=== PATIENT | female | born 1990 | race Two or more races ===

== ENCOUNTER 2024-09-13 11:55 | Emergency (ER) | payer MEDICAID, SELFPAY ==
[2024-09-13 11:56] VITALS: BP 173/103; PULSE 74; RESP 18; TEMP 38.3; O2SAT 99; BMI 61.9
--- NOTE | 2024-09-13 12:10 | PD.EDBACK ---
ED Back Injury Pain RME/HPI General Chief Complaint: Back Pain/Injury Stated Complaint: BACK PAIN AFTER SNEEZING A COUPLE WEEKS AGO Time Seen by Provider: 09/13/24 12:00 Arrival date/time: 09/13/24 11:55 Limitations: no limitations RME / HPI RME / HPI Narrative: 33-year-old female with no past medical history is here today with mild left-sided mid back pain. She states that started after she sneezed 2 weeks ago. She denies any distal paresthesias or weakness. Has no changes in bowel movements or urination. Has no nausea or vomiting. Has no urinary complaints. She is febrile here with a temp of 101 Fahrenheit, she has no tachycardia. Vital signs are otherwise stable. She denies any cough or congestion. No rashes. No skin changes. She has no other acute complaints. Related Data Previous Rx's ?Medication ?Instructions ?Recorded diphenhydramine HCl 50 mg capsule 50 mg PO Q6H PRN allergic reaction 08/19/20 #20 caps epinephrine 0.3 mg/0.3 mL 0.3 ml subcut .one time dose #1 ea 08/19/20 injection, auto-injector famotidine 20 mg tablet 20 mg PO BID #14 tabs 08/19/20 methylprednisolone 4 mg tablets in 4 mg PO .as directed #21 tabs 08/22/20 a dose pack (Medrol (Harshad)) etodolac 400 mg tablet 400 mg PO BID PRN pain #30 tabs 09/10/21 methocarbamol 750 mg tablet 750 mg PO TID PRN pain #30 tabs 09/10/21 methocarbamol 750 mg tablet 750 mg PO TID #20 tabs 09/13/24 Allergies Allergy/AdvReac Type Severity Reaction Status Date / Time No Known Allergies Allergy Verified 09/13/24 11:58 Review of Systems Review of Systems Systems Reviewed: All systems reviewed, normal except as documented ED Exam General Limitations: Present no limitations General appearance: Present alert and in no apparent distress Head Head exam: Present atraumatic Eye Eye exam: Present normal appearance, PERRL and EOMI ENT ENT exam: Present normal exam, normal oropharynx and mucous membranes moist Neck Neck exam: Present normal inspection, full ROM and trachea midline Expanded Neck Exam Neck exam focused ED: Present other (No midline tenderness or vertebral step-off) Chest Chest inspection: Present normal inspection and symmetric chest wall rise Respiratory Respiratory exam: Present normal lung sounds bilaterally Cardiovascular Cardiovascular exam: Present regular rate, normal rhythm and normal heart sounds Abdominal Exam Abdominal exam: Present soft and normal bowel sounds Extremities Exam Extremities exam: Present normal inspection, full ROM and other (Strength is intact in all extremities) Back Exam Back exam: Present normal inspection and full ROM Neurological Exam Neurological exam: Present alert, oriented X3 and CN II-XII intact Psychiatric Psychiatric exam: Present normal affect and normal mood Skin Skin exam: Present warm, dry, intact and normal color Course Quality Measures none Orders Category Date Time Status Bedside COVID-19 Antigen Test NOW Care 09/13/24 12:10 Completed FLU A&B [Influenza A & B Rapid Panel] Stat Lab 09/13/24 13:07 Ordered Acetaminophen Tab [Tylenol ES Tab] Med 09/13/24 12:11 Discontinued 1,000 mg PO X1 ONE Vital Signs Vital signs: Vital Signs Temperature 101.0 F H 09/13/24 11:56 Pulse Rate 74 09/13/24 11:56 Respiratory Rate 18 09/13/24 11:56 Blood Pressure 173/103 H 09/13/24 11:56 Pulse Oximetry (%) 99 09/13/24 11:56 Oxygen Delivery Method Room Air 09/13/24 11:56 Back Pain / Injury Patient data External records reviewed:: None Clinical information provided by:: patient Social determinants that could affect healthcare access:: none Patient has the following chronic illnesses:: n/a How is presenting disease/condition affected by chronic disease/condition?: no chronic disease Evaluation data The following diagnostics were reviewed and interpreted by me:: lab results Lab and/or radiology exams considered but not ordered:: n/a Interpretation Summary: n/a Medications / Prescriptions Medications or Prescriptions considered but not ordered:: n/a Medication administrations:: Medication Administration History Discontinued Medications Acetaminophen (Acetaminophen 500 Mg Tablet) 1,000 mg PO X1 ONE Stop: 09/13/24 12:12 Last Admin: 09/13/24 12:27 Dose: 1,000 mg Documented By: NARA See above Consultations Consultation(s) initiated? (list below): No Diagnosis Most likely diagnosis given after review of the tests above:: Viral syndrome Admission Indicated Admission indicated?: not indicated Admission Request Was there a request for admission?: No Disposition Plan Disposition Plan: Discharge Discharge Attestation Discharge Attestation: The patient and all family members were given an opportunity to ask questions and understood the discharge instructions. Discharge instructions specifically effects, indications for sooner follow up or return to the emergency department, and the expected course of current diagnosis. Patient condition: Stable Discharge Plan Plan Patient Disposition: HOME (Self Care) Patient condition on transfer: Stable Prescriptions/Referrals Prescriptions/Med Rec: New methocarbamol 750 mg tablet 750 mg PO TID Qty: 20 0RF No Action methylprednisolone [Medrol (Harshad)] 4 mg tablets,dose pack 4 mg PO .as directed Qty: 21 0RF diphenhydramine HCl 50 mg capsule 50 mg PO Q6H PRN (Reason: allergic reaction) Qty: 20 0RF famotidine 20 mg tablet 20 mg PO BID Qty: 14 0RF epinephrine 0.3 mg/0.3 mL auto-injector 0.3 ml subcut .one time dose Qty: 1 0RF Rx Instructions: give one dose in the muscle in anterolateral aspect of thigh methocarbamol 750 mg tablet 750 mg PO TID PRN (Reason: pain) Qty: 30 0RF etodolac 400 mg tablet 400 mg PO BID PRN (Reason: pain) Qty: 30 0RF Referrals: Virginia Gupta FNP [Primary Care Provider] - In 1 week Problem List Clinical Impression: Acute viral syndrome Patient/Caregiver Discharge Instructions Education Materials: ED Viral Syndrome (Adult) Additional Instructions: Maintain your hydration. Use Tylenol and ibuprofen as needed. Follow-up with your primary clinic as needed. Return here for any worsening or emergent changes. Print Language: [place] Stand Alone Forms: [facility] Info., Patient Portal Info Letter
[2024-09-13 12:27] VITALS: TEMP 38.3
[2024-09-13] MEDS: ACETAMINOPHEN 500 MG TABLET 1000 MG PO (12:27)
[2024-09-13 13:40] VITALS: BP 138/68; PULSE 78; RESP 18; TEMP 37.1; O2SAT 99
== END 2024-09-13 13:40 | disposition home or self-care (01) ==
PROVIDERS: Emergency Provider Family Medicine; PCP Nurse Practitioner Family
DX: B34.9 Viral infection, unspecified (principal)
CPT/HCPCS: 87502; 87811; 99283; A9270

== ENCOUNTER 2025-01-11 18:01 | Emergency (ER) | payer MEDICAID, SELFPAY ==
[2025-01-11 18:02] VITALS: BMI 61.9
[2025-01-11 18:36] VITALS: BP 170/95; BP 173/114; PULSE 107; RESP 18; TEMP 36.9; O2SAT 98
--- NOTE | 2025-01-11 18:44 | XR_ITS ---
Examination: Transvaginal ultrasound of the pelvis, complete Technique: Transvaginal sonographic images pelvis performed using mendez scale imaging Exam date and time: January 11, 2025, 9 1920 hours INDICATIONS: Vaginal bleeding beginning 6 weeks ago. FINDINGS: Uterus 11.2 cm endometrial stripe 2.1 cm No uterine mass Right ovary 8.5 cm arterial flow, right ovarian cyst 7.5 x 6.6 x 5.2 cm Left ovary 3.5 cm arterial flow IMPRESSION: No uterine mass or intrauterine gestation Large right ovarian simple cyst 7.5 cm.
[2025-01-11 19:05] LABS: Collection Type, Urine Voided
[2025-01-11 19:14] LABS: Bilirubin,Urine Negative (Negative); Blood,Urine 3+ (Negative); Clarity,Urine Turbid (Clear/Hazy); Color,Urine Brown (Lt Yel-Yel); Glucose, Urine Trace (Negative); Ketones,Urine Negative (Negative); Leukocyte Esterase,Urine Positive (Negative); Nitrite,Urine Negative (Negative); PH,Urine 6.5 (5.0-7.0); Protein,Urine 1+ (Neg - Trace); RBC,Urine 1669 /hpf (0-3); Specific Gravity,Urine 1.010 (1.001-1.035); Squamous Epithelial Cell,Urine 2 /hpf (0-5); Urobilinogen,Urine Negative mg/dL (0.0-1.0); WBC,Urine 9 /hpf (0-5)
[2025-01-11 20:00] LABS: Basophils # (Auto) 0.1 Thou/mm3 (0.0-0.2); Basophils % (Auto) 1 % (0-2.5); Eosinophils # (Auto) 0.2 Thou/mm3 (0.0-0.5); Eosinophils % (Auto) 2 % (0-10); Hematocrit 28.7 % (36.0-46.0); Hemoglobin 9.7 g/dL (12.0-16.0); Immature Granulocytes Auto 0.36 Thou/mm3 (0.00-0.00); Lymphocytes # (Auto) 3.3 Thou/mm3 (1.0-4.8); Lymphocytes % (Auto) 28 % (10-50); Mean Corpuscular HGB Conc 33.8 g/dl (31.0-37.0); Mean Corpuscular Hemoglobin 28.5 pg (25.0-35.0); Mean Corpuscular Volume 84 fL (80-100); Monocytes # (Auto) 0.6 Thou/mm3 (0.0-0.8); Monocytes % (Auto) 5 % (0-12); Neutrophils # (Auto) 7.5 Thou/mm3 (1.8-7.7); Neutrophils % (Auto) 62 % (37-80); Nucleated Red Blood Cell # 0.12 Thou/mm3 (0.00-0.00); Nucleated Red Blood Cell % 1 /100 WBC (0); Platelet Count 266 Thou/mm3 (140-440); RDW Standard Deviation 42.1 fL (36.4-46.3); Red Blood Count 3.40 Miln/mm3 (4.00-5.20); White Blood Count 12.2 Thou/mm3 (3.6-11.0)
[2025-01-11 20:20] LABS: Alanine Aminotransferase 47 U/L (10-49); Albumin, Serum 4.4 gm/dL (3.5-5.0); Albumin/Globulin Ratio 1.8 (1.2-2.2); Alkaline Phosphatase 80 U/L (46-116); Anion Gap 11 (7-16); Aspartate Amino Transferase 33 U/L (0-34); BUN/Creatinine Ratio 8 Ratio (12-20); Beta HCG,Quantitative < 1 mIU/mL (<5.0); Bilirubin,Total 0.4 mg/dL (0.3-1.2); Blood Urea Nitrogen 6 mg/dL (9-23); Calcium 9.0 mg/dL (8.3-10.6); Calcium (Corrected) 9.0 mg/dL (8.5-10.1); Carbon Dioxide 22.7 mMol/L (20.0-31.0); Chloride 102 mMol/L (98-107); Creatinine (Component) 0.8 mg/dL (0.6-1.3); Estimated Creatinine Clearance 148.5 mL/min (>60); Globulin 2.5 gm/dL (2.3-3.5); Glucose 190 mg/dL (74-106); Osmolality,Calculated 274 (275-295); Potassium 3.5 mMol/L (3.4-5.1); Sodium 136 mMol/L (136-145); Total Protein 6.9 gm/dL (5.7-8.2); eGFR > 60 See Note
[2025-01-11 21:11] VITALS: BP 172/103; BP 181/75; PULSE 98; RESP 18; TEMP 36.8; O2SAT 99
[2025-01-11 21:36] VITALS: BP 172/103; PULSE 98
--- NOTE | 2025-01-11 22:19 | PD.EDFMALE ---
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 where she was treated with tranexamic acid patient was fine until yesterday patient started to have a prolonged heavy menstrual period with blood clots and pelvic cramping OB history patient has no history of patient menarche at 10 years old patient stated that since she started to have menstrual period she is irregular patient states that before the symptoms started she do not have any menstrual period for 1 year until 6 weeks patient started to have menstrual period which become heavy and prolonged worsening of the symptoms thus patient decided to sought consult here in the emergency room Limitations: no limitations Related Data Previous Rx's ?Medication ?Instructions ?Recorded diphenhydramine HCl 50 mg capsule 50 mg PO Q6H PRN allergic reaction 08/19/20 #20 caps epinephrine 0.3 mg/0.3 mL 0.3 ml subcut .one time dose #1 ea 08/19/20 injection, auto-injector famotidine 20 mg tablet 20 mg PO BID #14 tabs 08/19/20 methylprednisolone 4 mg tablets in 4 mg PO .as directed #21 tabs 08/22/20 a dose pack (Medrol (Harshad)) etodolac 400 mg tablet 400 mg PO BID PRN pain #30 tabs 09/10/21 methocarbamol 750 mg tablet 750 mg PO TID PRN pain #30 tabs 09/10/21 methocarbamol 750 mg tablet 750 mg PO TID #20 tabs 09/13/24 ferrous sulfate 325 mg (65 mg 325 mg PO TID 10 days #30 tabs 01/11/25 iron) tablet lisinopril 10 mg tablet 10 mg PO QDAY 30 days #30 tabs 01/11/25 medroxyprogesterone 10 mg tablet 10 mg PO TID 10 days #30 tabs 01/11/25 (Provera) nitrofurantoin 100 mg PO BID #20 caps 01/11/25 monohydrate/macrocrystals 100 mg capsule (Macrobid) Allergies Allergy/AdvReac Type Severity Reaction Status Date / Time No Known Allergies Allergy Verified 01/11/25 18:04 Review of Systems Review of Systems Systems Reviewed: All systems reviewed, normal except as documented Constitutional Constitutional: Reports system reviewed and no additional complaints, except as documented and Reports as per HPI ENT Ears, Nose, Mouth, and Throat: Denies dysphagia and Denies odynophagia Cardiovascular Cardiovascular: Reports system reviewed and no additional complaints, except as documented and Reports as per HPI Respiratory Respiratory: Reports system reviewed and no additional complaints, except as documented and Reports as per HPI Gastrointestinal Gastrointestinal: Reports system reviewed and no additional complaints, except as documented, Reports as per HPI, Denies abdominal pain, Denies belching, Denies bloating, Denies change in bowel habits, Denies change in stool character, Denies coffee ground emesis, Denies constipation, Denies cramping, Denies diarrhea, Denies dyspepsia, Denies dysphagia, Denies early satiety, Denies excessive flatus, Denies fecal incontinence, Denies heartburn, Denies hematemesis, Denies hematochezia, Denies loose stools, Denies melena, Denies nausea, Denies odynophagia, Denies tenesmus and Denies vomiting Genitourinary Genitourinary: Reports system reviewed and no additional complaints, except as documented, Reports as per HPI, Reports abnormal menses, Reports abnormal vaginal bleeding, Reports amenorrhea, Reports change in libido, Denies dyspareunia, Denies dysuria, Denies genital pruritis, Denies hematuria, Reports menorrhagia, Reports pelvic pain, Denies urinary incontinence, Denies urinary hesitancy, Denies urinary urgency, Denies vaginal discharge, Denies vaginal dryness, Denies vaginal odor and Denies vaginal pruritus Integumentary/Breasts Skin/Breast: Reports system reviewed and no additional complaints, except as documented and Reports as per HPI Neurologic Neurologic: Reports system reviewed and no additional complaints, except as documented and Reports as per HPI Psychiatric Psychiatric: Reports change in libido Endocrine Endocrine: Reports change in libido Past Medical History Past Medical History NEUROLOGIC: Negative Neurological Disorders CARDIAC: Positive Cardiac Disorders and Hypertension; Negative Congestive Heart Failure RESPIRATORY: Positive Asthma and Wheezing; Negative Chronic Obstructive Pulmonary Disease (COPD), Bronchitis or Pneumonia GASTROINTESTINAL: Positive Gastrointestinal Disorders and Gastroesophageal Reflux Disease GENITOURINARY: Negative Renal Disease MUSCULOSKELETAL: Negative Musculoskeletal Disorders ENDOCRINE: Negative Diabetes Mellitus Type 1 or Diabetes Mellitus Type 2 PSYCHO/SOCIAL: Positive Anxiety OTHER HISTORY: Negative Hospitalization Surgical History SURGICAL: Positive Amputation (right big toe, 2nd toe) Social History SMOKING STATUS: Never smoker ED Exam General Limitations: Present no limitations General appearance: Present alert, in no apparent distress and other Head Head exam: Present atraumatic, normocephalic and normal inspection Eye Eye exam: Present normal appearance, PERRL and EOMI ENT ENT exam: Present normal exam, normal oropharynx and mucous membranes moist Neck Neck exam: Present normal inspection, full ROM and trachea midline; Absent tenderness, meningismus, lymphadenopathy or thyromegaly Chest Chest inspection: Present normal inspection and symmetric chest wall rise; Absent tenderness Respiratory Respiratory exam: Present normal lung sounds bilaterally; Absent respiratory distress, wheezes, stridor, accessory muscle use or prolonged expiratory phase Cardiovascular Cardiovascular exam: Present regular rate, normal rhythm and normal heart sounds; Absent bradycardia, tachycardia, irregular rhythm, systolic murmur or diastolic murmur Abdominal Exam Abdominal exam: Present soft, normal bowel sounds and other (Patient is obese no CVA tenderness bladder is not tender nor distended); Absent distention, tenderness, guarding, rebound, rigidity, diminished bowel sounds, hyperactive bowel sounds, hypoactive bowel sounds, organomegaly, psoas sign, obturator sign, Kovacs's sign, Rovsing's sign, tenderness at McBurney's Point or hernia Extremities Exam Extremities exam: Present normal inspection and full ROM Back Exam Back exam: Present normal inspection and full ROM Neurological Exam Neurological exam: Present alert, oriented X3, CN II-XII intact, normal gait and reflexes normal; Absent motor sensory deficit Psychiatric Psychiatric exam: Present normal affect and normal mood Skin Skin exam: Present warm, dry, intact, normal color and other (Excellent skin turgor) Course Quality Measures none Orders Category Date Time Status US transvaginal Stat Exams 01/11/25 18:44 Completed ABO/RH Type Stat Lab 01/11/25 19:45 Completed Beta HCG,Quantitative Stat Lab 01/11/25 19:45 Completed CBC Stat Lab 01/11/25 19:45 Completed CMP [Comprehensive Metabolic Panel] Stat Lab 01/11/25 19:45 Completed Urinalysis Stat Lab 01/11/25 18:55 Completed MEDRoxyPROGESTERone ACET [Provera] Med 01/11/25 21:49 Discontinued 10 mg PO X1 ONE cloNIDine HCL [Catapres] Med 01/11/25 21:17 Discontinued 0.1 mg PO X1 ONE Vital Signs Vital signs: Vital Signs Temperature 98.5 F 01/11/25 18:36 Pulse Rate 107 H 01/11/25 18:36 Respiratory Rate 18 01/11/25 18:36 Blood Pressure 170/95 H 01/11/25 18:36 Pulse Oximetry (%) 98 01/11/25 18:36 Oxygen Delivery Method Room Air 01/11/25 18:36 Oxygen saturation is 98% on room air normal Urogenital - Female MDM Narrative MDM Narrative:: This is a case of 34-year-old female with history of hypertension in the past but not taking any medication came in in the emergency room due to prolonged and heavy menstrual period for 6 weeks patient was 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 where she was treated with tranexamic acid patient was fine until yesterday patient started to have a prolonged heavy menstrual period with blood clots and pelvic cramping OB history patient has no history of patient menarche at 10 years old patient stated that since she started to have menstrual period she is irregular patient states that before the symptoms started she do not have any menstrual period for 1 year until 6 weeks patient started to have menstrual period which become heavy and prolonged worsening of the symptoms thus patient decided to sought consult here in the emergency room physical examination patient is awake alert oriented not in distress nontoxic looking well-hydrated well-nourished excellent skin turgor heart normal rate regular rhythm no murmur lungs clear breath sound no crackles no rales no retraction no wheezing noted neurological exam is normal awake alert oriented x 4 no focal deficit GCS 15/15 steady gait abdominal exam is benign nonsurgical no guarding no rebound no rigidity no CVA tenderness bladder is not distended not tender patient is obese the rest of the physical examination neurological exam is normal and unremarkable vital signs stable BP noted to be elevated at 170/92 patient has no headache chest pain palpitation blurring of vision dizziness patient is not tachycardic not tachypneic not hypoxic and afebrile patient was given clonidine 0.1 mg sublingual repeat blood pressure was done after 1 hour and noted to be 130/82 I have a long discussion regarding patient hypertension patient stated that she was diagnosed to have hypertension before and started on lisinopril but not taking the medication patient requested medication refill of lisinopril patient remained asymptomatic patient will follow-up with PCP to continue to monitor blood pressure and to review medication for hypertension modified diet regular exercise is advised patient blood test showed no leukocytosis but with anemia of 9.7 patient is not no electrolyte imbalance kidney and liver function is normal urinalysis showed WBC and blood in the urine suggestive of urinary tract infection ultrasound of the pelvic showed an ovarian cyst no pelvic mass due to heavy bleeding with blood clots and anemia ice to Dr. Scott OB printing press machine operator on-call I discussed the patient condition history and physical examination relayed the result of blood test and the imaging at the time of exam I was told that the patient do not need any admission there is no indication patient will be discharged home and follow-up with OB printing press machine operator I was instructed to discharge patient with Provera 10 mg 3 times daily for 10 days and stop tranexamic acid patient also need to have iron supplement 3 times a day for 10 days patient need to call the OB printing press machine operator for further evaluation and earlier appointment I also discussed with the patient that if the bleeding still persistent for 3 days she needs to return in the emergency room for reevaluation and to have another blood test and ultrasound worsening symptoms or any emergent concern return precaution in the ER is advised patient was also prescribed with Macrobid for urinary tract infection Patient was discharged with comfortable condition walking with stable gait. Patient verbalized no further complains explained diagnosis and answered patient question. Patient is comfortable with the proposed management plan including the need to follow up with his/her primary care physician and any specialist if applicable Discussed patient for any urgent condition or worsening sx, He/She needed to go to emergency room immediately or call 911. Patient acknowledge the responsibility to follow up as instructed and to monitor her/his symptoms. For any persistence of the symptoms for more than 3-5 days return precaution advised. Discussed the result of the test and was given printed discharge instruction Patient data External records reviewed:: [facility] previous records Clinical information provided by:: patient and none Social determinants that could affect healthcare access:: none Patient has the following chronic illnesses:: None How is presenting disease/condition affected by chronic disease/condition?: no chronic disease Evaluation data The following diagnostics were reviewed and interpreted by me:: lab results and radiology exam(s) Lab and/or radiology exams considered but not ordered:: Reviewed Interpretation Summary: Reviewed Medications / Prescriptions Medications or Prescriptions considered but not ordered:: Given given Medication administrations:: Medication Administration History Discontinued Medications Clonidine (Clonidine Hcl 0.1 Mg Tablet) 0.1 mg PO X1 ONE Stop: 01/11/25 21:18 Last Admin: 01/11/25 21:36 Dose: 0.1 mg Documented By: WALDO Medroxyprogesterone Acetate (Medroxyprogesterone Acet 2.5 Mg Tablet) 10 mg PO X1 ONE Stop: 01/11/25 21:50 Last Admin: 01/11/25 22:27 Dose: Not Given Documented By: DO Non-Admin Reason: Medication Not Available Given Consultations Consultation(s) initiated? (list below): Yes Consultation #1 (Physician, Specialty, Details): Dr. Scott discussed patient condition history and physical examination relayed the result of blood test and imaging at the time of exam there is no indication to admit the patient to discharge the patient with Provera 3 times a day and iron 3 times a day and follow-up with OB printing press machine operator for further evaluation and treatment of abnormal vaginal bleeding Diagnosis Urogenital Female Differential Diagnosis: urinary tract infection, ovarian cyst and other (Uterine fibroid dysfunctional uterine bleeding) Most likely diagnosis given after review of the tests above:: Dysfunctional uterine bleeding ovarian cyst Admission Indicated Admission indicated?: not indicated Explain why admission is indicated or not indicated:: Not indicated Admission Request Was there a request for admission?: No Admission Attestation Admission request attestation: Not indicated Disposition Plan Disposition Plan: Discharge Discharge Attestation Discharge Attestation: The patient and all family members were given an opportunity to ask questions and understood the discharge instructions. Discharge instructions specifically effects, indications for sooner follow up or return to the emergency department, and the expected course of current diagnosis. Patient condition: Stable Discharge Plan Plan Patient Disposition: HOME (Self Care) Patient condition on transfer: Stable Prescriptions/Referrals Prescriptions/Med Rec: New medroxyprogesterone [Provera] 10 mg tablet 10 mg PO TID 10 Days Qty: 30 0RF ferrous sulfate 325 mg (65 mg iron) tablet 325 mg PO TID 10 Days Qty: 30 0RF lisinopril 10 mg tablet 10 mg PO QDAY 30 Days Qty: 30 0RF nitrofurantoin monohyd/m-cryst [Macrobid] 100 mg capsule 100 mg PO BID Qty: 20 0RF Rx Instructions: must administer with a meal/food No Action methylprednisolone [Medrol (Harshad)] 4 mg tablets,dose pack 4 mg PO .as directed Qty: 21 0RF diphenhydramine HCl 50 mg capsule 50 mg PO Q6H PRN (Reason: allergic reaction) Qty: 20 0RF famotidine 20 mg tablet 20 mg PO BID Qty: 14 0RF epinephrine 0.3 mg/0.3 mL auto-injector 0.3 ml subcut .one time dose Qty: 1 0RF Rx Instructions: give one dose in the muscle in anterolateral aspect of thigh methocarbamol 750 mg tablet 750 mg PO TID PRN (Reason: pain) Qty: 30 0RF etodolac 400 mg tablet 400 mg PO BID PRN (Reason: pain) Qty: 30 0RF methocarbamol 750 mg tablet 750 mg PO TID Qty: 20 0RF Referrals: No Primary/Family,Physician [Primary Care Provider] - In 1 week Problem List Clinical Impression: Abnormal vaginal bleeding, Ovarian cyst, Anemia, Hypertension, uncontrolled, Medication refill, Urinary tract infection Patient/Caregiver Discharge Instructions Education Materials: Anemia, Urinary Tract Infections in Women, Treatment for Ovarian Cysts, ED Dysfunctional Uterine Bleeding, ED Hypertension, Established Additional Instructions: Follow-up with your primary care physician in 2 days for reevaluation it is very important to see your OB printing press machine operator as scheduled for further evaluation and treatment of abnormal vaginal bleeding and ovarian cyst persistence of the symptoms persistence of the vaginal bleeding in 3 days return to the emergency room immediately or call 911 for further evaluation of abnormal vaginal bleeding and for anemia worsening symptoms or any emergent concern return precaution in the ER is advised follow-up with your primary care physician to monitor your blood pressure and to review your medication for hypertension check your blood pressure twice a day and if your blood pressure greater than 160/100 or become symptomatic return to the emergency room or call 911 take your medication as directed keep hydrated is advised low-fat low-cholesterol low-salt diet regular exercise finish the course of antibiotic Print Language: Telugu Stand Alone Forms: [facility] Info., Patient Portal Info Letter PA/PAYROLL MANAGER Supervising Physician PA/RAF Supervising Physician: Dr. Julisa Orellana
[2025-01-11 22:21] VITALS: BP 130/72; PULSE 94; RESP 18; O2SAT 97
--- NOTE | 2025-01-11 22:27 | PC.NURSE ---
informed provider cam medication not available, per provider okay not to give pt getting prescription.
== END 2025-01-11 22:58 | disposition home or self-care (01) ==
PROVIDERS: Nurse Practitioner Family; Emergency Provider Emergency Medicine
DX: N83.209 Unspecified ovarian cyst, unspecified side (principal); D64.9 Anemia, unspecified; I10 Essential (primary) hypertension; Z76.0 Encounter for issue of repeat prescription; N39.0 Urinary tract infection, site not specified
CPT/HCPCS: 36415; 76830; 80053; 81001; 84702; 85025; 86900; 86901; 99283; A9270